=== PATIENT | male | born 1990 | race Caucasian/White ===

== ENCOUNTER 2016-08-20 04:21 | Emergency (ER) ==
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
[2016-08-20] MEDS ORDERED: LIDOCAINE 1 % AMP 5 ML (SUTURES) SUBCUT STA (06:25)
[2016-08-20] MEDS ORDERED: LIDOCAINE 1 % AMP 5 ML (SUTURES) ONE (06:27)
[2016-08-25 07:32] VITALS: BP 134/74; TEMP 97.6; BMI 20.3
== END 2016-08-20 06:51 | disposition home or self-care (01) ==
LOC: ED 04:21
DX: S01.511A Laceration without foreign body of lip, initial encounter (principal); R51 Headache; F10.129 Alcohol abuse with intoxication, unspecified; S00.83XA Contusion of other part of head, initial encounter; F17.210 Nicotine dependence, cigarettes, uncomplicated; Y09 Assault by unspecified means
CPT/HCPCS: 36415; 80307; 99283; 99284